=== PATIENT | male | born 1965 | race African-American/Black ===

== ENCOUNTER 2022-04-21 20:40 | Emergency (ER) | payer BC, SELFPAY ==
[2022-04-21] MEDS ORDERED: Ibuprofen 200 MG TAB ONE (22:14)
== END 2022-04-21 22:06 | disposition home or self-care (01) ==
LOC: CSHERS 20:40
DX: M25.531 Pain in right wrist (principal); I10 Essential (primary) hypertension; F17.210 Nicotine dependence, cigarettes, uncomplicated; Z79.899 Other long term (current) drug therapy